=== PATIENT | male | born 1975 | race Caucasian/White ===

== ENCOUNTER 2023-05-25 22:19 | Emergency (ER) | payer BC ==
[~2023-05-25] VITALS: Ht 190.5 cm; Wt 103.0 kg
[2023-05-25] MEDS ORDERED: MAG HYDROX/AL HYDROX/SIMETH 30 ML LIQUID UDC ONE (23:56)
[2023-05-25] MEDS: MAG HYDROX/AL HYDROX/SIMETH 30 ML LIQUID UDC PO ONE (23:58)
[2023-05-26] MEDS ORDERED: CLON0.1T PO (00:03)
[2023-05-26 00:11] VITALS: BP 140/92; TEMP 98.5; O2SAT 99
== END 2023-05-26 00:11 | disposition home or self-care (01) ==
LOC: ER 22:21
DX: I16.0 Hypertensive urgency (principal); R10.9 Unspecified abdominal pain; Z79.899 Other long term (current) drug therapy
CPT/HCPCS: A4606; A4663